=== PATIENT | female | born 1950 | race Caucasian/White ===

== ENCOUNTER 2019-09-02 16:44 | Emergency (ER) | payer MEDICARE, OTHER, SELFPAY ==
--- NOTE | ~2019-09-02 | CT_ITS ---
EXAMINATION: CT abdomen pelvis wo con DATE: 09/02/2019 18:31 INDICATION: Left flank pain. TECHNIQUE: Computed tomography (CT) of the abdomen and pelvis was performed without intravenous contr ast. Automated exposure control and iterative reconstruction technique were employed. The dose-length product was 1316.20 mGy-cm. COMPARISON: 08/27/2012 FINDINGS: Mild atelectasis along the left lung base and in the dependent bilateral lower lobes. Calcified nodul es in the right middle lobe along with multiple splenic and a couple hepatic calcifications, all cons istent with old granulomatous disease. Heart size is normal. Atherosclerotic coronary artery calcific ations. No pericardial or pleural effusion. Small sliding-type hiatal hernia. Diffuse hepatic steatos is with focal sparing along the gallbladder fossa. Gallbladder, pancreas and bilateral adrenal glands are normal. Mild bilateral diffuse renal cortical atrophy. No significant change in a 12 mm low-atte nuation cyst at the upper pole of the left kidney. 5 mm hyperdense proteinaceous/hemorrhagic cyst at the lower pole of the left kidney. Bilateral nonobstructing nephrolithiasis with 1-2 mm stone at the lower pole of the left kidney and 1 mm stone at the upper pole of the right kidney. No stones seen al suad the course of the normal ureters. No hydronephrosis. No abnormal bowel wall thickening or obstruc tion. The appendix is not visualized. No pericecal inflammatory change to suggest acute appendicitis. The uterus is not identified and has likely been surgically resected. Evaluation of the deep pelvis is somewhat limited by streak artifact from a right total hip arthroplasty with cerclage wires about the subtrochanteric femur. There appears to be increased density of the urine within the decompressed bladder. No free intraperitoneal gas or fluid. No pathologically enlarged abdominal or pelvic lympha denopathy. Severe thoracic and lumbar spondylosis with anterior fusion with bone graft cages at L5-S1 . Moderate left hip osteoarthritis. IMPRESSION: 1. Lateral nephrolithiasis. No evident ureteral stones or hydronephrosis. 2. Increased density of urine at the bladder suggesting hematuria. Correlate with urinalysis and for any history of recent contrast administration. 3. Diffuse hepatic steatosis.. Reviewed, dictated and finalized at location A. IMPRESSION: 1. Lateral nephrolithiasis. No evident ureteral stones or hydronephrosis. 2. Increased density of urine at the bladder suggesting hematuria. Correlate wi th urinalysis and for any history of recent contrast administration. 3. Diffuse hepatic steatosis..
[2019-09-02 17:08] VITALS: BP 104/64; PULSE 109; RESP 22; TEMP 36.8; O2SAT 97
[2019-09-02 17:25] LABS: Basophils Percent Auto 0.5 % (0.2-1.2); Eosinophils Absolute Auto 0.3 K/mm3 (0-0.3); Eosinophils Percent Auto 4.4 % (0-4.4); Hematocrit 44.1 % (37.0-47.0); Hemoglobin 14.1 g/dL (12.0-15.0); Immature Granulocyte Absolute 0.02 K/mm3 (0.00-0.031); Immature Granulocyte Percent A 0.3 % (0-0.5); Lymphocytes Absolute Auto 2.61 K/mm3 (0.9-3.2); Lymphocytes Percent Auto 39.2 % (18.3-44.2); Mean Corpuscular Hemoglobin 29.8 pg (26-34); Mean Corpuscular Volume 93.2 fl (80-100); Mean Platelet Volume 9.9 fl (7.4-10.4); Monocytes Absolute Auto 0.4 K/mm3 (0.1-0.6); Monocytes Percent Auto 6.3 % (2.6-8.5); Neutrophils Absolute Auto 3.3 K/mm3 (1.3-6.7); Neutrophils Percent Auto 49.3 % (45.5-73.1); Platelet Count Result 168 k/mm3 (150-375); Red Blood Count 4.73 M/mm3 (4.2-5.4); Red Cell Distribution Width 14.7 % (11.5-14.5); White Blood Count 6.7 K/mm3 (4.5-10.0)
--- NOTE | 2019-09-02 17:27 | ED.BACK ---
HPI - Back Pain/Injury General Chief Complaint: Back Pain/Injury Stated Complaint: KIDNEY STONE Time Seen by Provider: 09/02/19 17:20 History of Present Illness HPI Narrative: Left flank pain for the past week. Sharp. Radiates to the RLQ. Associated with nausea and dysuria. Additionally c/o mild diarrhea. She reports that these are the same symptoms that she has had with kidney stone in the past. She has been taking naproxen without relief. Related Data Home Medications Medication Instructions Recorded Confirmed alprazolam 09/02/19 aspirin 09/02/19 citalopram mg 09/02/19 cyanocobalamin (vitamin B-12) 09/02/19 fluticasone propionate INTRANASAL 09/02/19 hydrocortisone 09/02/19 ibuprofen 09/02/19 isosorbide mononitrate mg PO 09/02/19 levothyroxine 09/02/19 nitroglycerin mg 09/02/19 nystatin 1 applic TOPICAL BID 09/02/19 09/02/19 omeprazole 09/02/19 pravastatin 09/02/19 prednisone 09/02/19 vit A-vit D3-vit E-vit K cap PO 09/02/19 zolpidem 09/02/19 zolpidem 09/02/19 Allergies Allergy/AdvReac Type Severity Reaction Status Date / Time hydrocodone Allergy Mild PER DANNI Verified 09/02/19 17:40 (2-SURG) 3-- Review of Systems Review of Systems: All systems reviewed & are unremarkable except as noted in HPI and below Constitutional: Constitutional: Denies fever(s) Cardiovascular: Cardiovascular: Reports chest pain Respiratory: Respiratory: Reports dyspnea Gastrointestinal: Gastrointestinal: Reports abdominal pain, Reports diarrhea and Reports nausea Genitourinary: Genitourinary: Denies hematuria, Reports dysuria and Reports flank pain Neurologic: Denies numbness and Denies weakness [facility] Past Medical History Medical History (Updated 09/03/19 @ 00:00 by Siva Molina) Hypothyroidism Kidney stone Social History Social History Gender identity (if verbalized by the patient): Female Exam Const: General: no acute distress and alert Nutritional Appearance: obese Orientation/consciousness: patient oriented x3 HENMT: Head: normal to inspection Resp: Effort & Inspection: normal respiratory effort Auscultation: clear to auscultation bilaterally Cardio: Rate: regular rate Rhythm: regular rhythm GI: Other: Diffusely tender. No rebound or gurading. Skin: General skin exam: normal color Neuro: General: patient oriented x3, moves all extremities and CN's II-XI intact bilaterally Speech: normal speech Extrem: General: normal to inspection Course Vital Signs Vital signs: Vital Signs Temperature 36.8 C 09/02/19 17:08 Pulse Rate 109 H 09/02/19 17:08 Respiratory Rate 22 H 09/02/19 17:08 Blood Pressure 104/64 09/02/19 17:08 Pulse Oximetry 97 09/02/19 17:08 Temperature 36.8 C 09/02/19 17:08 Pulse Rate 88 09/02/19 19:15 Respiratory Rate 17 09/02/19 19:15 Blood Pressure 131/77 09/02/19 19:15 Pulse Oximetry 97 09/02/19 19:15 MDM - Back Pain/Injury MDM Narrative Medical decision making narrative: CT shows no stone or pyelonephritis. UA concerning for infection. Will treat Medical Records Attestation: I reviewed the patient's medical records. Lab Data Attestation: I reviewed the patient's lab results. Result diagrams: 09/02/19 17:15 09/02/19 17:15 Labs: Lab Results 09/02/19 09/02/19 09/02/19 Range/Units 17:14 17:15 17:15 WBC 6.7 (4.5-10.0) K/mm3 RBC 4.73 (4.2-5.4) M/mm3 Hgb 14.1 (12.0-15.0) g/dL Hct 44.1 (37.0-47.0) % MCV 93.2 (80-100) fl MCH 29.8 (26-34) pg MCHC 32.0 (32-36) g/dl RDW 14.7 H (11.5-14.5) % Plt Count 168 (150-375) k/mm3 MPV 9.9 (7.4-10.4) fl Immature Gran % (Auto) 0.3 (0-0.5) % Neut % (Auto) 49.3 (45.5-73.1) % Lymph % (Auto) 39.2 (18.3-44.2) % [place] % (Auto) 6.3 (2.6-8.5) % Eos % (Auto) 4.4 (0-4.4) % Baso % (Auto) 0.5 (0.2-1.2)
[2019-09-02 17:30] LABS: Add Urine Microscopic? YES; Appearance Urine Cloudy (Clear); Bacteria Urine Trace /hpf; Bilirubin Urine Negative (Negative); Blood Urine 2+ (Negative); Calcium Oxalate Crystals Urine Many /hpf; Color Urine Amber (Yellow); Glucose Urine UA Negative (Negative); Ketones Urine Negative (Negative); Leukocyte Esterase Ur 3+ LEU/UL (Negative); Mucus Urine Few /lpf; Nitrate Urine Negative (Negative); Protein Urine 1+ mg/dL (Negative); Specific Grav Ur 1.026 (1.001-1.035); Squamous Epithelial Cell Urine Many /hpf (Few); WBC Urine >75 /hpf
[2019-09-02 17:35] LABS: Blood Urea Nitrogen 12 mg/dL (7-17); Calcium 8.9 mg/dL (8.4-10.2); Carbon Dioxide 26 mmol/L (22-30); Chloride 107 mmol/L (98-107); Estimated CRCL calculation 81 ml/min; Estimated Glomerular Filt Rate > 60; Glucose 115 mg/dL (65-105); Potassium 3.6 mmol/L (3.4-5.0); Sodium 138 mmol/L (137-145)
[2019-09-02] MEDS: SODIUM CHLORIDE 0.9% IV 1,000 ML 999 ML IV CONT (17:57)
[2019-09-02] MEDS: ONDANSETRON INJ 4 MG/2 ML VIAL IV PUSH (17:59)
[2019-09-02 18:41] LABS: Alanine Aminotransferase 32 U/L (4-35); Alkaline Phosphatase 84 U/L (38-126); Aspartate Amino Transferase 32 U/L (14-36); Bilirubin,Total 0.6 mg/dL (0.2-1.3); Blood Urea Nitrogen 12 mg/dL (7-17); Calcium 9.2 mg/dL (8.4-10.2); Carbon Dioxide 26 mmol/L (22-30); Chloride 108 mmol/L (98-107); Estimated CRCL calculation 81 ml/min; Estimated Glomerular Filt Rate > 60; Glucose 117 mg/dL (65-105); Lipase 99 U/L (23-300); Potassium 3.5 mmol/L (3.4-5.0); Sodium 139 mmol/L (137-145)
[2019-09-02 19:15] VITALS: BP 131/77; PULSE 88; RESP 17; O2SAT 97
[2019-09-02] MEDS: CEFDINIR 300 MG CAPSULE PO (19:15)
[2019-09-02] MEDS: KETOROLAC 30 MG/ML VIAL (*BKC) IV PUSH (19:15)
--- NOTE | 2019-09-09 16:46 | PC.NURSE ---
Late Entry by this RN . This Pt received 1000ml of fluids that was completed at 1825 by this RN
== END 2019-09-02 19:15 | disposition home or self-care (01) ==
PROVIDERS: Emergency Provider Emergency Medicine; PCP Nurse Practitioner
DX: N39.0 Urinary tract infection, site not specified (principal); E03.9 Hypothyroidism, unspecified; Z87.442 Personal history of urinary calculi; Z79.82 Long term (current) use of aspirin; N20.0 Calculus of kidney; K76.0 Fatty (change of) liver, not elsewhere classified
CPT/HCPCS: 36415; 74176; 80048; 80053; 81001; 83690; 85025; 87077; 87086; 87088; 96374; 96375; 99284; A9270; J1885; J2405; J3010; J7030